=== PATIENT | female | born 2000 | race Caucasian/White ===

== ENCOUNTER 2022-10-17 13:27 | Outpatient (CLI) | payer BC ==
[2022-10-17 14:43] LABS: BHCG - Serum Negative (NEGATIVE); Pregs Control Background? CLEAR/WHITE (CLR/WHITE); Pregs Control Bar Appear? YES (CONTROL BAR)
== END 2022-10-17 13:28 | disposition home or self-care (01) ==
LOC: LABBT 13:27
PROVIDERS: ATTEND Otolaryngology Plastic Surgery within the Head & Neck
DX: Z01.812 Encounter for preprocedural laboratory examination (principal); J35.01 Chronic tonsillitis; J35.3 Hypertrophy of tonsils with hypertrophy of adenoids
CPT/HCPCS: 84703; 85014

== ENCOUNTER 2022-10-19 06:58 | Day surgery (SDC) | payer BC ==
[2022-10-18 08:44] VITALS: BMI 28.0
[2022-10-19] MEDS ORDERED: Scopolamine 1.5 mg/72 hour Patch ONE (08:23)
[2022-10-19] MEDS ORDERED: Famotidine/PF 20 mg/2ml Vial ONE ×2 (08:23→09:16)
[2022-10-19] MEDS ORDERED: Midazolam HCl 2 mg/2 ml Vial ONE (08:23)
[2022-10-19] MEDS ORDERED: fentaNYL PF 100 MCG/2 ML SYRINGE ONE (09:16)
[2022-10-19] MEDS ORDERED: Meperidine HCl/PF 25 MG/ML VIAL ONE (09:16)
[2022-10-19] MEDS ORDERED: PROPOFOL 200 MG/20 ML VIAL ONE (09:19)
[2022-10-19] MEDS ORDERED: Dexamethasone 20 MG/5 ML VIAL ONE (09:19)
[2022-10-19] MEDS ORDERED: Ondansetron PF 4 MG/2 ML Vial ONE (09:19)
[2022-10-19] MEDS ORDERED: Lidocaine 1% PF 5 ML VIAL ONE (09:19)
[2022-10-19] MEDS ORDERED: Ferric Subsulfate (ASTRINGYN) 8 GM VIAL ONE (09:27)
[2022-10-19] MEDS ORDERED: FENTANYL 50 MCG/ML 1 ML VIAL ONE ×2 (09:54→10:07)
[2022-10-19] MEDS ORDERED: Hydrocodone-Acetamin 15 ML UDCUP ONE (11:01)
== END 2022-10-19 11:50 | disposition home or self-care (01) ==
LOC: SDC 06:58
PROVIDERS: ATTEND Otolaryngology Plastic Surgery within the Head & Neck
PROC: 0CTPXZZ Resection of Tonsils, External Approach (ICD-10-PCS; principal; 2022-10-19)
PROC: 0CTQXZZ Resection of Adenoids, External Approach (ICD-10-PCS; principal; 2022-10-19)
DX: J35.03 Chronic tonsillitis and adenoiditis (principal); J35.8 Other chronic diseases of tonsils and adenoids
CPT/HCPCS: 88304; J1100; J2175; J2250; J2405; J2704; J3010; S0028